=== PATIENT | male | born 1960 | race Caucasian/White ===

== ENCOUNTER → 2019-01-12 | Outpatient (CLI) | payer OTHER ==
--- NOTE | 2019-01-12 13:55 | PCVCIMAG ---
APPROVED REPORT Study performed: 01/12/2019 08:30:33 EXAM: Comprehensive 2D, Doppler, and color-flow Echocardiogram Patient Location: Echo lab Room #: 2Status: routine BSA: 1.92 HR: 100 bpm Rhythm: Sinus Tachycardia Other Information Study Quality: Good Risk Factors: Cardiac Risk Factors: HTN, Hyperlipidemia, scleroderma Indications Palpitations Hypertension/HDD 2D Dimensions IVSd: 9.43 (7-11mm)LVOT Diam: 22.15 (18-24mm) LVDd: 58.54 mm PWd: 7.83 (7-11mm)Ascending Ao: 35.48 (22-36mm) LVDs: 48.01 (25-40mm) Left Atrium: 43.35 (27-40mm) Aortic Root: 30.61 mm LV Single Plane 4CH: 46.59 % LV Single Plane 2CH: 58.56 % Biplane EF: 51.0 % Volumes Left Atrial Volume (Systole) Single Plane 4CH: 30.42 mLSingle Plane 2CH: 43.97 mL Biplane LA Volume: 37.00 mLLA ESV Index: 19.00 mL/m2 Aortic Valve AoV Peak Leonard.: 1.34 m/s AO Peak Gr.: 7.23 mmHgLVOT Max P.07 mmHg LVOT Max V: 0.72 m/s ABIGAIL Vmax: 2.06 cm2 Mitral Valve E/A Ratio: 0.4 MV Decel. Time: 74.39 ms MV E Max Leonard.: 0.39 m/s MV A Leonard.: 1.05 m/s TDI E/Lateral E': 6.50E/Medial E': 4.88 Medial E' Leonard.: 0.08 m/s Lateral E' Leonard.: 0.06 m/s Pulmonary Valve PV Peak Leonard.: 1.09 m/sPV Peak Gr.: 4.79 mmHg Pulmonary Vein P Vein S: 0.52 m/sP Vein A: 0.34 m/s P Vein D: 0.34 m/sP Vein A Dur.: 93.4 msec P Vein S/D Ratio: 1.53 Tricuspid Valve TR Peak Leonard.: 1.04 m/s TR Peak Gr.: 4.35 mmHg TV Vmax: 0.46 m/sPA Pressure: 11.00 mmHg Left Ventricle Left ventricle is mildly dilated. Mid-distal septal hypokinesis. There is normal left ventricular wall thickness. Left ventricular systolic function is low normal. LVEF is 51%. Grade I - abnormal relaxation pattern. Right Ventricle The right ventricle is normal size. The right ventricular systolic function is normal. Atria The left atrium size is normal. The right atrium size is normal. Aortic Valve Aortic valve is trileaflet. The aortic valve is normal in structure and function. No aortic regurgitation is present. There is no aortic valvular stenosis. Mitral Valve The mitral valve is normal in structure. There is no mitral valve regurgitation noted. No evidence of mitral valve stenosis. Tricuspid Valve The tricuspid valve is normal in structure. Trace tricuspid regurgitation. No pulmonary hypertension. Pulmonic Valve The pulmonary valve is normal in structure. There is no pulmonic valvular regurgitation. Great Vessels The aortic root is normal in size. The ascending aorta is normal in size. Aortic arch is normal in caliber. IVC is normal in size and collapses >50% with inspiration. Pericardium There is no pericardial effusion. There is no pleural effusion. <Conclusion> Left ventricle is mildly dilated. LVEF is 51%. Aortic valve is trileaflet. The aortic valve is normal in structure and function. The mitral valve is normal in structure. The tricuspid valve is normal in structure. Trace tricuspid regurgitation. No pulmonary hypertension. There is no pericardial effusion.
--- NOTE | 2019-01-13 16:13 | PCVCIMAG ---
APPROVED REPORT Imaging Protocol: Rest Tc-99m/Stress Tc-99m 1 day Study performed: 01/12/2019 09:08:43 Indication: Irregular Heartbeat, Scleroderma Patient Location: Out-Patient Stress Nurse: Abby Harper RN HI Tech:Mary Cruz [facility] Ht: 5 ft 7 in Wt: 177 lbs BSA: 1.92 m2 HR: 105 bpm BP: 142/100 mmHg BMI: 27.71 Rhythm: Sinus Tachycardia Medical History Medical History: Hyperlipidemia, HTN, Former Smoker Medications: Amlodipine, Lisinopril, Prednisone, Zanaflex Allergies: Iodine, Shellfish Cardiac Risk Factors: Age Pretest Chest Pain Characteristics: No chest pain Exercise History: Sedentary Resting Data Rest SPECT myocardial perfusion imaging was performed in supine position 45 minutes following the intravenous injection of 10.7 mCi of Tc-99m Sestamibi. Time of rest injection: 929 Date: 01/12/2019 Administration Route: IV Administration Site: Right AC Pharmacologic Stress Pharmacologic stress test was performed by injecting Regadenoson 0.4 mg IV push over 10-15 seconds immediately followed by the intravenous injection of 33.3 mCi of Tc-99m Sestamibi. Time of stress injection: 1045 Date: 01/12/2019 Administration Route: IV Administration Site: Right AC Gated Stress SPECT was performed 45 minutes after stress injection. The images were gated to evaluate regional wall motion and calculate left ventricular ejection fraction. Stress Test Details Stress Test: Pharmacologic stress testing performed using 0.4 mg of regadenoson per 5 mL given IV over 10 seconds. Reason for pharmacologic stress test: physical limitation, unsteady gait. HRMax Heart Rate (APMHR): 162 bpm Resting HR: 105 bpmTarget HR (85% APMHR): 137 bpm Max HR Achieved: 117 bpm % of APMHR: 72 Recovery HR: 113 bpm BP Resting BP: 142/100 mmHg Max BP: 144/88 mmHg Recovery BP: 146/90 mmHg ECG Resting ECG: Sinus Tachycardia Stress ECG: Sinus Tachycardia Recovery ECG: Sinus Tachycardia Clinical Reason for Termination: Completed protocol Stress Symptoms: Abdominal discomfort Exercise duration: 0 min 55 sec Symptoms resolved during recovery. Stress ECG Conclusion 1. Adequate response to intravenous Lexiscan 2. Inadequate heart rate for ECG diagnosis Study Data Post stress, the left ventricular ejection was 50%.. SSS: 0 SRS: 0 SDS: 0 TID = 1.04. Perfusion There is a large area of mildly reduced uptake in the entire segment of the inferior wall which is seen on the stress images as well as the resting images. This area is mildly hypokinetic and is most consistent with attenuation artifact or prior ischemic event. Nuclear Conclusion ECG Findings: non-diagnostic Clinical Findings: negative for ischemia Nuclear Findings: negative for ischemia Exercise Capacity: not assessed Left Ventricular Function: normal 1. Low risk study 2. Post stress left ventricular ejection fraction 50% <Conclusion> 1. Adequate response to intravenous Lexiscan 2. Inadequate heart rate for ECG diagnosis
== END | disposition home or self-care (01) ==
LOC: PCVCIMAG 08:19
PROVIDERS: ATTEND Internal Medicine
DX: R00.2 Palpitations (principal); I10 Essential (primary) hypertension; E78.5 Hyperlipidemia, unspecified; Z87.891 Personal history of nicotine dependence
CPT/HCPCS: 78452; 93017; 93306; A9500